=== PATIENT | female | born 1950 | race Caucasian/White ===

== ENCOUNTER → 2016-11-18 | Day surgery (SDC) | payer OTHER ==
[~2016-11-18] MED LIST: ACETAMINOPHEN 1000 MG/100 ML VIAL IV ONE; ACETAMINOPHEN/HYDROcodone 325 MG/5 MG TAB ONE; BUPIVACAINE/EPINEPHRINE 0.25% PF 10 ML VIAL ONE; GENTAMICIN SULFATE 80 MG/2 ML VIAL ONE; LACTATED RINGER'S 1000 ML INJ 1,000 ML ONE; LIDOCAINE 1%/EPINEPHrine 1:100,000 SOLN 20 ML VIAL ONE; MEPERIDINE HCL 25 MG/ML VIAL ONE; MIDAZOLAM HCL 2 MG/2 ML VIAL ONE; ONDANSETRON HCL 4 MG/2 ML VIAL IV PUSH ONE; PROPOFOL 200 MG/20 ML AMP IV ONE; SODIUM CHLORIDE 0.9% 20 ML VIAL ONE; ceFAZolin INJ 1,000 MG VIAL ONE
--- NOTE | 2016-11-18 10:20 | TN ---
cc: WILLIAM GUO MD DATE OF SURGERY 11/18/2016 PREOPERATIVE DIAGNOSIS Deflation of the right breast implant, capsule contraction, deformity, asymmetry, ptosis. PROCEDURE Removal/replacement of implant, full bilateral capsulectomies, re-augmentation mammoplasty and the circumvertical mastopexy. SURGEON William Guo MD/DE[facility] ANESTHESIA [facility] general. I also utilized 60 cc of 1% lidocaine with epinephrine mixed with 0.25% Marcaine in a 2:1 ratio, 30 cc per breast. I also utilized two 7 mm DENNY drains. COMPLICATIONS None DRAINS Two 7 mm DENNY IMPLANT DATA, PLACEMENT AND APPROACH After the full capsulectomy/capsulorrhaphies and remaining in the retroperitoneal plane, is an Inspira Natrelle 400 cc, the serial number of the right breast implant device is [id number] and the implant data serial number of the left breast implant device is [id number]. PROCEDURE After she was properly consented and marked with the NAC at approximately 19 cm from sternal notch 38 mm areolar diameter, applying the block and sterilizing the breast and the upper torso utilizing Betadine solution, sterile draping applied. Isolation of the nipple-areolar complex was carried out. Utilizing an infra-areolar vertical incision, I proceeded to perform an approach to the capsule where indeed it was very calcified and hard. A full capsulectomy was done. This device was previously placed in the retroperitoneal plane. Milky fluid was encountered. It was properly drained, removed and certainly cultured. A full capsulectomy was successfully performed. At this point, lateral inferior capsulorrhaphy was done down to the anterior axillary inframammary fold utilizing a locking 2-0 Monocryl suture multiple passes. With this, after irrigating the pocket with triple antibiotic solution and isolating the skin, an implant was introduced. The contralateral side was approached in exactly the same manner. The wounds were closed in multiple 2-0 Monocryl suture layers. The patient was sat up, tailor tack technique was done at this point. I assessed the new envelope. The skin was marked, jamilah removed, deepithelization was done utilizing a 15 blade and the closure now on the new mastopexy circumvertical approach was done utilizing 2-0 Monocryl suture in a vertical horizontal area. The NAC was now brought out in the anatomical position utilizing a pinwheel, utilizing a 2-0 PTFE and reinforcing with 2-0 quill. A Prineo Dermabond was utilized with tissue glue and mesh. Good viability of the tissue was noted at the end of the case An absorbent compression bra was applied thereafter along with some absorbent dressings. Overall, the patient tolerated the procedure well. She was awakened and extubated in the operating room, transferred back to the postanesthesia care unit in stable condition. There were complications appreciated and the patient tolerated the procedure fairly well. MD YELITZA Dunham/VERONICA /9:51 AM /10:01 AM
== END | disposition home or self-care (01) ==
LOC: ESDC 06:04
PROVIDERS: ATTEND Plastic Surgery
DX: Z41.1 Encounter for cosmetic surgery (principal)
CPT/HCPCS: 00400; 00402; 19316; 19325; 19328; 87015; 87070; 87102; 87116; 87205; 87206; 88305; C1789; J0131; J0690; J1580; J2175; J2250; J2405; J7120; J3010